=== PATIENT | female | born 1960 | race Two or more races ===

== ENCOUNTER 2019-06-13 13:54 | Emergency (ER) | payer OTHER ==
[~2019-06-13] VITALS: Ht 157.5 cm; Wt 93.0 kg
[2019-06-13 13:57] VITALS: Ht 157.5 cm; Wt 93.0 kg
[2019-06-13 16:53] VITALS: BP 187/91
== END 2019-06-13 16:53 | disposition home or self-care (01) ==
LOC: ED 13:54
DX: J20.9 Acute bronchitis, unspecified (principal); F17.210 Nicotine dependence, cigarettes, uncomplicated; F15.20 Other stimulant dependence, uncomplicated; Z71.6 Tobacco abuse counseling; Z98.890 Other specified postprocedural states
CPT/HCPCS: 99406; J0171; J7512; J7613; J7644; Q0092